=== PATIENT | female | born 1960 | race Caucasian/White ===

== ENCOUNTER 2016-08-26 09:44 | Emergency (ER) | payer BC ==
[~2016-08-26] VITALS: Ht 157.5 cm; Wt 69.5 kg
[2016-08-26] MEDS ORDERED: CO Q10CA PO (09:56)
[2016-08-26] MEDS ORDERED: ROBA750T4 PO (09:56)
[2016-08-26] MEDS ORDERED: OXYC1SOL3 PO (09:56)
[2016-08-26] MEDS ORDERED: compazine (09:56)
[2016-08-26] MEDS ORDERED: PROTPAK PO (09:56)
[2016-08-26] MEDS ORDERED: PRAV10TA4 PO (09:56)
[2016-08-26] MEDS ORDERED: ONDANSETRON 4MG/2ML VIAL (J2405) As Ordered ONE (10:13)
[2016-08-26] MEDS ORDERED: ONDANSETRON 4 MG ORAL DISINTEGRATING TAB (S0181) SL ONE ×2 (10:30)
[2016-08-26 11:21] LABS: BASO # 0.3 K/mm3 (0.0-0.2); BASO % 2.5 % (0.0-1.0); EOS # 0.1 K/mm3 (0.0-0.50); EOS % 0.7 % (0.0-3.0); LARGE UNSTAINED CELL # 0.1 K/mm3 (0.0-0.4); LARGE UNSTAINED CELL % 1.3 % (0.0-4.0); LYMPH # 1.3 K/mm3 (1.5-4.5); LYMPH % 12.2 % (24.0-44.0); MEAN CORPUSCULAR HEMOGLOBIN 30.8 pg (27.0-33.0); MEAN CORPUSCULAR HGB CONC 33.5 g/dl (32.0-36.5); MEAN CORPUSCULAR VOLUME 91.9 fl (80.0-96.0); MONO # 0.3 K/mm3 (0.0-0.8); MONO % 2.4 % (0.0-5.0); NEUTROPHILS # 8.9 K/mm3 (1.8-7.7); NEUTROPHILS % 80.9 % (36.0-66.0); PLATELET COUNT, AUTOMATED 300 k/mm3 (150-450); RED CELL DISTRIBUTION WIDTH 13.7 % (11.5-14.5)
[2016-08-26 11:42] LABS: ALBUMIN 3.9 GM/DL (3.2-5.2); ALBUMIN/GLOBULIN RATIO 0.98 (1.00-1.93); ALKALINE PHOSPHATASE 99 U/L (45-117); ALT/SGPT 19 U/L (12-78); AMYLASE 30 U/L (25-115); ANION GAP 9 MEQ/L (8-16); AST/SGOT 16 U/L (15-37); BILIRUBIN,TOTAL 0.6 MG/DL (0.2-1.0); BLOOD UREA NITROGEN 9 MG/DL (7-18); CALCIUM LEVEL 9.9 MG/DL (8.5-10.1); CARBON DIOXIDE LEVEL 27 MEQ/L (21-32); CHLORIDE LEVEL 101 MEQ/L (98-107); CREATININE FOR GFR 0.66 MG/DL (0.55-1.02); GLOMERULAR FILTRATION RATE > 60.0 (>51); GLUCOSE, FASTING 145 MG/DL (70-105); SODIUM LEVEL 137 MEQ/L (136-145); TOTAL PROTEIN 7.9 GM/DL (6.4-8.2)
[2016-08-26] MEDS ORDERED: LORazepam 2 MG/ML VIAL (J2060) IV STA (11:50)
[2016-08-26] MEDS ORDERED: METOCLOPRAMIDE INJ 10MG/2ML VIAL (J2765) IV ONE (12:00)
[2016-08-26] MEDS ORDERED: NS 1,000 ML IV ONE ×2 (12:00)
[2016-08-26 13:19] VITALS: BP 175/99
[2016-08-26] MEDS ORDERED: REGL5TAB2 PO (13:24)
== END 2016-08-26 13:33 | disposition home or self-care (01) ==
LOC: M ED 09:44
DX: G43.A0 Cyclical vomiting, in migraine, not intractable (principal); E78.00 Pure hypercholesterolemia, unspecified; K21.9 Gastro-esophageal reflux disease without esophagitis; M54.9 Dorsalgia, unspecified; F17.200 Nicotine dependence, unspecified, uncomplicated; Z79.899 Other long term (current) drug therapy
CPT/HCPCS: 36415; 80053; 81001; 82150; 83690; 85025; 96361; 96374; 96375; 99284; J2060; J2405; J2765